=== PATIENT | female | born 1985 | race Caucasian/White ===

== ENCOUNTER 2024-06-15 08:20 | Emergency (ER) | payer SELFPAY ==
[~2024-06-15] VITALS: Ht 162.6 cm; Wt 91.3 kg
[2024-06-15] MEDS: SODIUM CHLORIDE 0.9% 1000ML 1,000 ML IV ONE (10:10)
[2024-06-15] MEDS: ONDANSETRON HCL INJ 2MG/ML 2ML 2 MG/ML VIAL IV STA (10:10)
[2024-06-15] MEDS ORDERED: IOPAMIDOL 370 MG/ML 100 ML INFUS..BTL INJ ONE (11:02)
[2024-06-15 12:11] VITALS: PULSE 88; RESP 16; TEMP 97.5; O2SAT 100
[2024-06-15] MEDS ORDERED: CIPRO500 MG PO (12:14)
== END 2024-06-15 12:22 | disposition home or self-care (01) ==
LOC: FSED 08:24
DX: R10.30 Lower abdominal pain, unspecified (principal); K52.9 Noninfective gastroenteritis and colitis, unspecified; R11.0 Nausea
CPT/HCPCS: 74177; 80053; 81025; 85025; 99284; J2405; J7030; Q9967